=== PATIENT | female | born 1995 | race Caucasian/White ===

== ENCOUNTER 2018-10-13 19:47 | Emergency (ER) | payer BC, OTHER ==
[~2018-10-13] VITALS: Ht 160 cm; Wt 67.2 kg
[2018-10-13 19:51] VITALS: BP 138/60; PULSE 82; RESP 16; Ht 160 cm; Wt 67.2 kg
--- NOTE | 2018-10-13 23:47 | ERD ---
ER Documentation Chief Complaint Chief Complaint R back pain going down R leg x 3 days HPI This is a 23-year-old female who presents to the emergency department with complaints of right lower back pain that radiates to right lower leg. Stated this happened 3 days ago. Denies trauma. Patient is ambulatory. LMP: Last week. A0. ROS All systems reviewed and are negative except as per history of present illness. Medications Home Meds Active Scripts Cyclobenzaprine Hcl* (Cyclobenzaprine Hcl*) 10 Mg Tablet, 10 MG PO TID PRN for MUSCLE SPASMS, #15 TAB Prov:SARTHAK OROSCOAR F 10/14/18 Ibuprofen* (Motrin*) 600 Mg Tab, 600 MG PO Q6H PRN for PAIN AND OR ELEVATED TEMP, #30 TAB Prov:ABELILABANSARTHAKAR F 10/14/18 Allergies Allergies: Coded Allergies: No Known Allergy (Unverified , 10/14/18) Physical Exam Vitals Vital Signs Date Temp Pulse Resp B/P (MAP) Pulse Ox O2 O2 Flow FiO2 Time Delivery Rate 10/13/18 99.1 82 16 138/60 100 19:51 (86) Physical Exam Const: No acute distress Head: Atraumatic Eyes: Normal Conjunctiva ENT: Normal External Ears, Nose and Mouth. Neck: Full range of motion. No meningismus. Resp: Clear to auscultation bilaterally Cardio: Regular rate and rhythm, no murmurs Abd: Soft, non tender, non distended. Normal bowel sounds Skin: No petechiae or rashes Back: No midline or flank tenderness. Right straight leg test is positive. No saddle anesthesia. No neurovascular deficits. Ambulatory with steady gait. Ext: No cyanosis, or edema Neur: Awake and alert. No neurological deficits. Psych: Normal Mood and Affect Results 24 hrs Laboratory Tests Test 10/13/18 00:06 10/14/18 00:10 10/14/18 00:11 Urine Color YELLOW Urine Clarity CLOUDY Urine pH 7.0 Urine Specific [place] 1.020 Urine Ketones NEGATIVE mg/dL Urine Nitrite NEGATIVE mg/dL Urine Bilirubin NEGATIVE mg/dL Urine Urobilinogen NEGATIVE mg/dL Urine Leukocyte Esterase TRACE Sarah/ul Urine Microscopic RBC 2 /HPF Urine Microscopic WBC 7 /HPF Urine Squamous Epithelial Cells FEW /HPF Urine Amorphous Crystals MANY /HPF Urine Hemoglobin NEGATIVE mg/dL Urine Glucose NEGATIVE mg/dL Urine Total Protein NEGATIVE mg/dl Bedside Urine pH (LAB) 7.5 Bedside Urine Protein (LAB) Negative Bedside Urine Glucose (UA) Negative Bedside Urine Ketones (LAB) Negative Bedside Urine Blood Negative Bedside Urine Nitrite (LAB) Negative Bedside Urine Leukocyte Esterase Trace (L POC Beta HCG, Qualitative NEGATIVE Current Medications Medications Dose Sig/Greg Start Time Status Last (Trade) Ordered Route PRN Stop Time Admin Dose Reason Admin Ketorolac 30 mg ONCE STAT 10/13/18 DC 10/14/18 Tromethamine IM 23:52 00:18 (Toradol) 10/13/18 23:55 1 tab ONCE ONCE 10/14/18 DC Acetaminophen PO 01:30 / 10/14/18 01:30 Hydrocodone Bitart ([place] (5/325)) Procedures/MDM Diagnostic tests: POC urine : Negative. Urinalysis: Reviewed. Culture urine: Sent. Treatment: Toradol IM. [place] p.o. Re-evaluation: Denies pain. No saddle anesthesia. No neurovascular deficit. Ambulatory with steady gait. Differential diagnosis I have low suspicion for fractures, sepsis, kidney stones, Final diagnosis: Sciatica. Prescription: Motrin. Flexeril. Follow-up with PCP in the next 24-48 hours. Come back here in the emergency department for any new symptoms or any worsening symptoms. All questions and concerns were answered. Patient and family members verbalized understanding and agreed with plan of care. Hemodynamically stable on discharge. Departure Diagnosis: Primary Impression: Back pain Additional Impression: Sciatica Condition: Stable Additional Instructions: Follow-up with PCP in the next 24-48 hours. Come back here in the emergency department for any new symptoms or any worsening symptoms. LAYNE OROSCO Oct 13, 2018 23:47
[2018-10-13] MEDS ORDERED: KETOROLAC 30 MG INJ IM STA (23:52)
[2018-10-14] MEDS ORDERED: IBUP-1542 PO (01:13)
[2018-10-14] MEDS ORDERED: CYCL10TA7 PO (01:14)
[2018-10-14] MEDS ORDERED: HYDROCODONE/APAP (5/325) TAB PO ONE (01:30)
== END 2018-10-14 01:27 | disposition home or self-care (01) ==
LOC: FTE 19:47
DX: M54.41 Lumbago with sciatica, right side (principal)
CPT/HCPCS: 81001; 81025; 87086; 96372; J1885; Z7502; 81003